=== PATIENT | female | born 1950 | race African-American/Black ===

== ENCOUNTER 2023-12-06 08:13 | Outpatient (AMB) | payer OTHER, SELFPAY ==
[2023-12-06 08:36] VITALS: BMI 35.9
--- NOTE | 2023-12-06 08:36 | A.OFFVIS_ITS ---
Intake VS Expanded 12/06/23 08:36 12/06/23 20:24 Height 5 ft 2 in 5 ft 2 in Weight 196 lb 6.91 oz 196 lb BMI 35.9 35.8 Intake Visit Reasons: Gastroparesis/CONFIRMED HPI Nutrition Presentation Details Pt presents for MNT for Gastroparesis. Pt was referred by gastroenterology specialist Marty Roque. Pt's main concerns: - education on gastroparesis diet -challenges affording food- declined meals on wheels referral at this time -diarrhea after consuming foods with dairy Pt reports preparing meals for self and for 15 yo grandchild ZAU-Jndiwrj-Ww.Jeor Equation Height 5 ft 2 in Weight 196 lb Resting Metabolic Rate 1342.40 Calculated Activity Level Mild Activity Calories Needed to Maintain Weight 1845.80 Diagnosis Nutrition problem #1 food nutri know defi As related to (etiology) #1 diagnosis (gastroparesis) As evidenced by (sign/symptom) #1 knowledge deficit of diet Monitoring/Goals Nutrition problem monitoring level of knowledge/skill (to work on reduction of fried food items, not laying down quickly after eating) Outcome comment choosing baked/low fat food options Learning/Education Readiness to learn good Stages of change contemplation Educational materials provided Yes (low fat gastroparesis diet concepts,meal plan) Most Recent Diabetes Results: No Data to Display Assessment & Plan Assessment & Plan (1) Gastroparesis: Code(s): K31.84 - Gastroparesis Plan: Wt: 89 Kg ( 11/2023 ) Est kcal needs as per MSJ: 1800 (40% carb, 30% protein/fat) Est fluid needs as per 25-30 ml/d: 5332-1191 Est prot per day as per 1 g/kg bw: 89 Recommend fiber intake : 8-10 g per day Recommend sodium intake per day : less than 1500 mg less than 2000 mg Educated patient on: ( R = reviewed V = verbalizes understanding N/R = needs review N/A = not applicable * Gastroparesis diet concepts: Choosing low fat food options and low fat cooking methods R Choosing soft foods, easy to digest R Keeping physically active as able R Low fiber food options, NR Hydration : R Food sources of b vitamins: NR Choose lactaid milk , lactose free food options - related to symptoms of diarrhea after consuming lactose containing milk * Healthy plate method concept: R Patient Instructions: Choose baked potatoes instead of fried potatoes Choose ground low fat protein food options (ground poultry, lean beef, limit deep fried foods and foods with batters, choose low fat cooking methods baked potatoes instead of fried, reduce on high fat food options (calzone/pizza, high fat meats, fried foods) work on having 3 smaller meals per day and low fat snacks if needed - see 1800 abida meal plan as a guide Chew foods well prior to swallowing keep a food record and bring to next f/u for review Try lactose free milk/foods which may help reduce symptoms of diarrhea as well as low fat food options see list of resources around your area including but no limited to food pantries, transportation, home delivered meals - see [email or web address] for additional information - share with your grandson and family members Coding Level of Care Code Nutr Indiv Intake (13711) Diagnoses Gastroparesis K31.84 Time Spent (min) 30
[2023-12-06 20:24] VITALS: BMI 35.8
== END 2023-12-06 09:06 | disposition home or self-care (01) ==
PROVIDERS: PCP Physician Assistant; Visit Provider Dietitian, Registered
DX: K31.84 Gastroparesis (principal)

== ENCOUNTER → 2023-12-06 08:13 | Outpatient (BNVA) | payer OTHER, SELFPAY | PROVIDERS: PCP Physician Assistant; Visit Provider Dietitian, Registered | DX: K31.84 Gastroparesis (principal); Z71.3 Dietary counseling and surveillance | CPT/HCPCS: 97802 ==

== ENCOUNTER 2024-01-11 08:18 | Outpatient (AMB) | payer OTHER, SELFPAY ==
[2024-01-11 08:34] VITALS: BMI 34.4
--- NOTE | 2024-01-11 08:34 | A.OFFVIS_ITS ---
VS Expanded 01/11/24 08:34 Height 5 ft 2 in Weight 187 lb 13.341 oz BMI 34.4 Intake Visit Reasons: Gastroparesis/Unable to lvm Nutrition Presentation Details: Pt presents for MNT f/u for gastroparesis Pt reports working on reducing on fried foods and reports feeling better. B: sausages and grits , or honey nut cheerios with milk (lactose free) L: rice/eye peas and sausage, water Dinner: hamburger , [place], burger, water and azael dave snacks:pop starts , milk , fruits walks everywhere BS Monitoring Most Recent Diabetes Results: No Data to Display Assessment & Plan Assessment & Plan (1) Gastroparesis: Code(s): K31.84 - Gastroparesis Category: Medical Plan: Wt: 89 Kg ( 11/2023 ), 85.2 kg (12/2023) Est kcal needs as per MSJ: 1800 (40% carb, 30% protein/fat) Est fluid needs as per 25-30 ml/d: 3146-0847 Est prot per day as per 1 g/kg bw: 89 Recommend fiber intake : 8-10 g per day Recommend sodium intake per day : less than 1500 mg less than 2000 mg Educated patient on: ( R = reviewed V = verbalizes understanding N/R = needs review N/A = not applicable * Gastroparesis diet concepts: Choosing low fat food options and low fat cooking methods R, V Choosing soft foods, easy to digest R Keeping physically active as able R Low fiber food options, NR Hydration : R Food sources of b vitamins: NR Choose lactaid milk , lactose free food options - related to symptoms of diarrhea after consuming lactose containing milk * Healthy plate method concept: R Patient Instructions: Include fruit , banana or dilute apple juice with water continue working on reducing on fried foods and reduce on amount of fat added to the foods Have 6 small meals ( reduce portions of the meals and distribute throughout the day ) HAve oatmeal at least twice a week Coding Level of Care Code Nutr Indiv Subseq (68831) Diagnoses Gastroparesis K31.84 Time Spent (min) 30
== END 2024-01-11 09:00 | disposition home or self-care (01) ==
PROVIDERS: PCP Physician Assistant; Visit Provider Dietitian, Registered
DX: K31.84 Gastroparesis (principal)

== ENCOUNTER → 2024-01-11 08:18 | Outpatient (BNVA) | payer OTHER, SELFPAY | PROVIDERS: PCP Physician Assistant; Visit Provider Dietitian, Registered | DX: K31.84 Gastroparesis (principal); Z71.3 Dietary counseling and surveillance | CPT/HCPCS: 97803 ==

== ENCOUNTER 2024-03-07 09:09 | Outpatient (AMB) | payer OTHER, SELFPAY ==
[2024-03-07 09:28] VITALS: BMI 33.7
--- NOTE | 2024-03-07 09:28 | A.OFFVIS_ITS ---
VS Expanded 03/07/24 09:28 Height 5 ft 2 in Weight 184 lb 8.43 oz BMI 33.7 Intake Visit Reasons: Gastroparesis/CONFIRMED Nutrition Presentation Details: Pt presents for MNT f/u for Gastroparesis Pt reports working on dietary changes slowly, reducing on fried foods. Typical meal Grits with sausage, juice or coffee or tea Noodle soups with chicken , water , juice crackers with tuna, juice or water burger and bread or cereal with lactose free milk denies vomiting c/o diarrhea 3-4 times/wk , varies throughout the week BS Monitoring Most Recent Diabetes Results: No Data to Display Assessment & Plan Assessment & Plan (1) Gastroparesis: Code(s): K31.84 - Gastroparesis Category: Medical Plan: Wt: 89 Kg ( 11/2023 ), 85.2 kg (12/2023), 83.6 kg (02/2024) Est kcal needs as per MSJ: 1800 (40% carb, 30% protein/fat) Est fluid needs as per 25-30 ml/d: 8289-6530 Est prot per day as per 1 g/kg bw: 89 Recommend fiber intake : 8-10 g per day Recommend sodium intake per day : less than 1500 mg less than 2000 mg Educated patient on: ( R = reviewed V = verbalizes understanding N/R = needs review N/A = not applicable * Gastroparesis diet concepts: Choosing low fat food options and low fat cooking methods R, V Choosing soft foods, easy to digest R Keeping physically active as able R Low fiber food options, R Hydration : R Food sources of b vitamins: R Chewing foods well prior to swallowing: R Choose low fat foods : baked, steamed: R, V * Healthy plate method concept: R Patient Instructions: Incorporate soft/puree like consistency protein foods: Add egg to the soups or Make chicken in a slow cooker- add it to the soup HAve a protein shake as meal replacement - see list of options Coding Level of Care Code Nutr Indiv Subseq (56417) Diagnoses Gastroparesis K31.84 Time Spent (min) 25
== END 2024-03-07 10:16 | disposition home or self-care (01) ==
PROVIDERS: PCP Physician Assistant; Visit Provider Dietitian, Registered
DX: K31.84 Gastroparesis (principal)

== ENCOUNTER → 2024-03-07 09:09 | Outpatient (BNVA) | payer OTHER, SELFPAY | PROVIDERS: PCP Physician Assistant; Visit Provider Dietitian, Registered | DX: K31.84 Gastroparesis (principal); Z71.3 Dietary counseling and surveillance | CPT/HCPCS: 97803 ==